=== PATIENT | female | born 1955 | race Caucasian/White ===

== ENCOUNTER → 2017-02-01 | Outpatient (CLI) | payer OTHER | END | disposition home or self-care (01) | LOC: GMAB 10:20 | PROVIDERS: ATTEND Family Medicine | DX: Z00.01 Encounter for general adult medical examination with abnormal findings (principal) ==

== ENCOUNTER → 2017-02-15 | Outpatient (CLI) | payer BC, OTHER ==
--- NOTE | 2017-02-17 10:59 | MAM ---
EXAM DESCRIPTION: 3D Screening BILATERAL : Digital Mammography. CLINICAL HISTORY: 61 years Female SCREENING . No complaints. No family history breast cancer. Hysterectomy. Taking HRT 5 or more years ago. COMPARISON: 2-D digital screening bilateral study 01/28/2016 and 10/23/2014. 2-D digital diagnostic right breast mammogram and targeted right breast ultrasound 11/13/2014. Report from prior examination also reviewed. TECHNIQUE: Bilateral CC and MLO projection full-field images, 3-D tomosynthesis digital mammographic technique. Also bilateral synthesized CC/ MLO full-field images. CAD not utilized. FINDINGS: The breast parenchymal density pattern is: Scattered areas of fibroglandular density. No skin thickening or nipple retraction bilateral solitary microcalcifications. Intramammary lymph node anterior right breast. No focal, stellate mass or density, focal asymmetry , and no suspicious microcalcifications bilaterally. Stable mammograms compared to prior studies, taking into account differences in mammographic technique IMPRESSION: BI-RADS CATEGORY: 2 - BENIGN FINDINGS. FOLLOW UP: Routine digital bilateral screening, one year interval from January 2017. Written communication explaining the IMPRESSION and follow-up, will be mailed to the patient and referring health care provider. According to the [employer], yearly mammograms are recommended starting at age 40 and continuing as long as a woman is in good health. Any breast change noted on a breast self-exam should be reported promptly to the patient's healthcare provider. Breast MRI is recommended for women with an approximately 20-25% or greater lifetime risk of breast cancer, including women with a strong family history of breast or ovarian cancer and women who have been treated for Hodgkin's disease. A negative mammographic report should not delay tissue diagnosis in patients with significant clinical history or physical findings. Extremely dense breast tissue limits the sensitivity of digital mammography. Electronically signed by: Camacho Meléndez MD 02/17/2017 10:57 AM GERM DRIER
== END ==
LOC: MAMMO 09:56
PROVIDERS: ATTEND Family Medicine
DX: Z12.31 Encounter for screening mammogram for malignant neoplasm of breast (principal)
CPT/HCPCS: 77063; G0202

== ENCOUNTER 2017-06-28 05:48 | Day surgery (SDC) | payer BC ==
[2017-06-28] MEDS ORDERED: LACTATED RINGERS 1,000 ML ONE (06:17)
[2017-06-28] MEDS ORDERED: LIDOCAINE 1% 10 ML VIAL INJ ONE (10:00)
[2017-06-28] MEDS ORDERED: MIDAZOLAM INJ 2 MG/2 ML VIAL IV ONE (10:00)
[2017-06-28] MEDS ORDERED: PROPOFOL 200 MG/20 ML VIAL IV ONE (10:00)
[2017-06-28] MEDS ORDERED: fentaNYL CITRATE INJ 50 MCG/ML AMP IV ONE (10:00)
--- NOTE | 2017-06-28 13:11 | OP ---
DATE OF PROCEDURE: 06/28/17 PREOPERATIVE DIAGNOSIS: 1. Change in bowel habits. 2. Bilateral lower quadrant pain. 3. Bloating. POSTOPERATIVE DIAGNOSIS: 1. Diverticulosis. PROCEDURE: 1. Colonoscopy plus biopsy. SURGEON: Fredy Rosa MD. COMPLICATIONS: None apparent. BLOOD LOSS: None. MEDICATIONS: Monitored anesthesia care. DESCRIPTION OF PROCEDURE: Informed consent was obtained prior to sedation. The preprocedure cardiopulmonary assessment was satisfactory. The patient was placed in the left lateral decubitus position and was sedated. A digital rectal exam was unremarkable. The tip of the Olympus colonoscope was inserted in the rectum and guided over to the cecum. The cecum was identified by locating the ileocecal valve and appendiceal orifice. The mucosa of the cecum, ascending colon, hepatic flexure, transverse colon, splenic flexure, descending colon and sigmoid colon was closely examined. Direct and retroflexed views of the rectum were obtained. The patient has diverticulosis spread throughout the ascending colon, descending colon and sigmoid, both large and small mouthed diverticula are present. Otherwise, the colonoscopy was unremarkable. Biopsies of random colon were taken with the cold biopsy forceps to rule out microscopic colitis. Of note, I also intubated the ileocecal valve once I had reached the cecum and the terminal ileum was inspected for about 30 cm. It was unremarkable endoscopically without evidence of Crohn's disease. RECOMMENDATIONS: 1. Followup biopsies. 2. Followup with Edmund Plascencia in our office in about three weeks. 3. If the biopsies are negative for microscopic colitis, I would recommend treating her for irritable bowel syndrome. We tried her on MiraLAX. If the MiraLAX is ineffective at controlling her symptoms, I would recommend fiber supplementation, antispasmodics or other measures. 4. She needs a followup colonoscopy in 5 years because of her family history of polyps in her dad and family history of colon cancer in her paternal grandfather. #[id number] cc: Dong Julien MD [facility]
[2017-06-28 14:44] VITALS: BP 158/86; TEMP 97.9; O2SAT 97
== END 2017-06-28 11:20 | disposition home or self-care (01) ==
LOC: AMB 05:48
PROVIDERS: ATTEND Internal Medicine Gastroenterology
DX: R19.4 Change in bowel habit (principal); K57.30 Diverticulosis of large intestine without perforation or abscess without bleeding; I10 Essential (primary) hypertension; E66.9 Obesity, unspecified; Z68.31 Body mass index [BMI] 31.0-31.9, adult; Z88.8 Allergy status to other drugs, medicaments and biological substances; Z80.0 Family history of malignant neoplasm of digestive organs; Z83.71 Family history of colonic polyps; Z79.899 Other long term (current) drug therapy
CPT/HCPCS: 00811; 45380; J2250; J3010; J3490; J7120

== ENCOUNTER → 2018-04-18 | Outpatient (CLI) | payer BC | LOC: GMAE 10:24 | PROVIDERS: ATTEND Family Medicine | DX: Z00.01 Encounter for general adult medical examination with abnormal findings (principal) ==

== ENCOUNTER → 2018-05-23 | Outpatient (CLI) | payer BC, MEDICARE ==
--- NOTE | 2018-05-24 12:08 | MAM ---
EXAM DESCRIPTION: 3D Screening BILATERAL : Digital Mammography. CLINICAL HISTORY: 62 years Female SCREENING . No complaints and no personal or family history of breast cancer. Childbirth. Hysterectomy 31 years ago. Hormone replacement 5 or more years ago.. Lifetime risk of developing breast cancer (Tyrer-Cuzick model)(%): 7.9. COMPARISON: Bilateral screening digital breast tomosynthesis 02/15/2017. TECHNIQUE: Bilateral CC and MLO projection full-field images, digital tomosynthesis mammographic technique. Bilateral digital 2-D full-field MLO images. CAD not available for tomosynthesis or 2-D images. FINDINGS: The breast parenchymal density pattern is: Almost entirely fatty. No skin thickening or nipple retraction. Small solitary microcalcifications bilaterally stable. No new focal, stellate mass or density, focal asymmetry , and no suspicious microcalcifications bilaterally. Stable mammograms compared to prior study. IMPRESSION: BI-RADS CATEGORY: 1 - NEGATIVE FOLLOW UP: Routine digital bilateral screening, one year interval from May 2018. Written communication explaining the findings and follow-up, will be mailed to the patient and referring health care provider. According to the [employer], yearly mammograms are recommended starting at age 40 and continuing as long as a woman is in good health. Any breast change noted on a breast self-exam should be reported promptly to the patient's healthcare provider. Breast MRI is recommended for women with an approximately 20-25% or greater lifetime risk of breast cancer, including women with a strong family history of breast or ovarian cancer and women who have been treated for Hodgkin's disease. A negative mammographic report should not delay tissue diagnosis in patients with significant clinical history or physical findings. Extremely dense breast tissue limits the sensitivity of digital mammography. Electronically signed by: Camacho Meléndez MD 05/24/2018 12:05 PM NECK SKEWER
== END ==
LOC: MAMMO 14:00
PROVIDERS: ATTEND Family Medicine
DX: Z12.31 Encounter for screening mammogram for malignant neoplasm of breast (principal)

== ENCOUNTER → 2019-07-24 | Outpatient (CLI) | payer BC, MEDICARE ==
--- NOTE | 2019-07-25 12:01 | MAM ---
EXAM DESCRIPTION: 3D Screening BILATERAL : Digital Mammography. CLINICAL HISTORY: 64 years Female ANNUAL SCREENING . No personal or family history of breast cancer. Menarche age 9. Childbirth age 24. Hysterectomy age 31. HRT 5 or more years ago. Lifetime risk of developing breast cancer (Tyrer-Cuzick model)(%): 7.9. COMPARISON: Bilateral screening digital breast tomosynthesis May 2018 and January 2017. TECHNIQUE: Bilateral CC and MLO projection full-field images, digital tomosynthesis mammographic technique. Bilateral digital 2-D full-field MLO images. CAD available for 2-D images. FINDINGS: The breast parenchymal density pattern is: Almost entirely fatty. No skin thickening or nipple retraction. Bilateral solitary microcalcifications. No new focal, stellate mass or density, focal asymmetry , and no suspicious microcalcifications . Stable mammograms compared to prior study. IMPRESSION: Benign exam. BIRAD CATEGORY: 2 BENIGN FINDINGS. RECOMMENDATIONS: FOLLOW UP: Routine digital bilateral mammographic screening, one year interval from July 2019. Written communication explaining the IMPRESSION and follow-up, will be mailed to the patient and referring health care provider. According to the [employer], yearly mammograms are recommended starting at age 40 and continuing as long as a woman is in good health. Any breast change noted on a breast self-exam should be reported promptly to the patient's healthcare provider. Breast MRI is recommended for women with an approximately 20-25% or greater lifetime risk of breast cancer, including women with a strong family history of breast or ovarian cancer and women who have been treated for Hodgkin's disease. A negative mammographic report should not delay tissue diagnosis in patients with significant clinical history or physical findings. Extremely dense breast tissue limits the sensitivity of digital mammography. Electronically signed by: Camacho Meléndez MD 07/25/2019 11:59 AM CDT
== END ==
LOC: MAMMO 13:07
PROVIDERS: ATTEND Family Medicine
DX: Z12.31 Encounter for screening mammogram for malignant neoplasm of breast (principal)

== ENCOUNTER → 2019-08-08 | Outpatient (CLI) | payer BC, MEDICARE | LOC: GMAE 11:29 | PROVIDERS: ATTEND Family Medicine | DX: Z00.00 Encounter for general adult medical examination without abnormal findings (principal) ==

== ENCOUNTER → 2019-12-09 | Outpatient (CLI) | payer BC, MEDICARE ==
--- NOTE | 2019-12-10 11:18 | RAD ---
EXAM DESCRIPTION: Knee,Left Complete CLINICAL HISTORY: 64 years Female, PAIN IN LEFT KNEE COMPARISON: None. Findings: Four views/radiographs Location: Left knee No acute fracture or dislocation. Osteopenia. Severe left knee osteoarthritis. No significant joint effusion. IMPRESSION: No evidence of acute process in the left knee. Electronically signed by: Flavio Tiwari MD 12/10/2019 11:16 AM CDT
--- NOTE | 2019-12-10 11:19 | RAD ---
EXAM DESCRIPTION: Pelvis CLINICAL HISTORY: 64 years Female, HIP PAIN LEFT COMPARISON: None. Findings: One view(s)/radiograph(s) Mild bilateral hip osteoarthritis. No acute fracture or dislocation. No focal soft tissue swelling. Osteopenia. IMPRESSION: No acute osseous abnormality in the pelvis. Electronically signed by: Flavio Tiwari MD 12/10/2019 11:17 AM CDT
== END ==
LOC: RAD 08:14
PROVIDERS: ATTEND Orthopaedic Surgery
DX: M25.552 Pain in left hip (principal); M25.562 Pain in left knee

== ENCOUNTER 2020-01-03 12:36 | Emergency (ER) | payer BC, MEDICARE ==
[2020-01-03] MEDS ORDERED: ONDANSETRON INJ 4 MG/2 ML VIAL IV ONE (12:56)
[2020-01-03] MEDS ORDERED: SODIUM CHLORIDE 0.9% (FLUSH) 10 ML SYG IV PRN (12:56)
[2020-01-03] MEDS ORDERED: SODIUM CHLORIDE 0.9% 1000ML 1,000 ML IVS ONE (12:56)
--- NOTE | 2020-01-03 12:57 | ED.PDOC ---
History of Present Illness - General Chief Complaint: GI Problem Stated Complaint: N/V/D Time Seen by Provider: 01/03/20 12:55 Source: patient - History of Present Illness Initial Comments: 64-year-old female who is sent over to the ED from Dr. Mcgraw's clinic for chief complaint of diarrhea and vomiting. Reports onset of illness 4 days ago. States she has been having episodes of watery diarrhea every day since onset. Reports 2 days ago she was having 12-15 episodes of diarrhea per day. Reports the diarrhea has continued but is seeming to slow down some. Reports she has had 6 episodes of diarrhea today. Additionally reports intermittent moderate generalized crampy abdominal pain which occurs with her episodes of diarrhea. Currently reports minimal pain. She reports intermittent episodes of nausea and vomiting of nonbloody nonbilious emesis but has had no episodes of vomiting today. Denies any fevers, chills, chest pain, cough, shortness of breath, urinary symptoms, sore throat, headache, body aches. No known recent sick contacts. Her PCP prescribed azithromycin yesterday and she has taken 2 doses. She had some labs done this morning which revealed a slightly low sodium and potassium levels but normal white count. She was referred to the ED for her low sodium and potassium levels and dehydration. Allergies/Adverse Reactions: Allergies Doxycycline Allergy (Verified 06/27/17 11:27) Home Medications: Ambulatory Orders Fluticasone Propionate (Nasal) [Flonase Allergy Relief] 1 mcg ELVA PRN 06/27/17 Lisinopril 40 mg PO DAILY 06/27/17 Polyethylene Glycol 3350 [Miralax] 17 gm PO DAILY 06/27/17 Zolpidem Tartrate [Zolpidem Tartrate ER] 6.25 mg PO BEDTIME 06/27/17 hydroCHLOROthiazide [Hydrochlorothiazide] 12.5 mg PO DAILY 06/27/17 Atrantil 275 Mg 275 mg PO DAILY 01/03/20 Cetirizine HCl [ZyrTEC] 10 mg PO PRN 01/03/20 Fluticasone Prop 0.05% Nasal [Flonase Nasal Delia] 1 spray BNAS PRN 01/03/20 Melatonin 10 mg PO BEDTIME 01/03/20 Meloxicam 7.5 mg PO BID 01/03/20 Metamucil PO PRN 10/16/20 Nitrofurantoin Monohydrate Mac [Macrobid] 100 mg PO BID 5 Days #10 capsule 01/03/20 Omeprazole Magnesium [Prilosec Otc] 20 mg PO DAILY 01/03/20 diphenhydrAMINE HCL [Benadryl] 25 mg PO PRN 01/03/20 Review of Systems - Review of Systems Review of Systems: 01/03/20 13:17 as per HPI All other Systems: Reviewed and Negative Past Medical History (General) - Patient Medical History Hx Congestive Heart Failure: No Hx Diabetes: No Hx MRSA: No Family Medical History - Family History Mother Family History: Unknown Living Status: Unknown Physical Exam - Physical Exam General Appearance: Alert, Comfortable, No apparent distress Eye Exam: bilateral normal Ears, Nose, Throat: normal ENT inspection, normal pharynx Neck: non-tender, full range of motion, supple, normal inspection Respiratory: lungs clear, normal breath sounds, no respiratory distress, no accessory muscle use Cardiovascular/Chest: normal peripheral pulses, regular rate, rhythm, no edema, no gallop, no JVD, no murmur Peripheral Pulses: radial,right: 2+, radial,left: 2+ Gastrointestinal/Abdominal: soft, abnormal bowel sounds - Hyperactive, tenderness - Mild generalized tenderness to palpation without rebound or guarding. Obturator and psoas signs are negative Back Exam: normal inspection, no CVA tenderness, no vertebral tenderness Extremity: normal range of motion, non-tender, normal inspection, no pedal edema, no calf tenderness, normal capillary refill Neurologic: human resources support specialist II-XII nml as tested, no motor/sensory deficits, alert, normal mood/affect, oriented x 3 Skin Exam: normal color, warm/dry Progress - Progress Progress: 01/03/20 13:19 Nausea/vomiting/diarrhea -Suspect viral gastroenteritis most likely, consider also colitis, UTI, constipation, acute appendicitis, acute pancreatitis, COVID-19, flu, strep, diverticulitis, other -Patient stable, vitals normal, afebrile, no acute distress -Obtain repeat blood work, urinalysis, swabs for COVID-19/flu/strep -Place peripheral IV, 1 L normal saline bolus, Zofran 4 mg IV 01/03/20 15:11 -Patient remains stable, reports feeling a little better. Denies any acute abdominal pain or tenderness on repeat exam. -Lab work reveals Na 128 (corrects to 129), K 3.1, Lipase 252. WBC 7,600 w/o left shift or bandemia. CMP with glucose 150, otherwise pretty normal appearing. Negative for flu/strep/COVID-19. UA with 10-20 WBC, 10-20 RBC, +nitrites - suspicious for UTI. -Discussed all findings with patient as well as diagnoses of acute viral gastroenteritis, mild dehydration, hyponatremia (suspect 2/2 dehydration/enteritis). Discussed the slightly elevated lipase level which I feel is secondary to the vomiting and diarrhea. Patient states she has not had vomiting and more than 2 days time now. And again she does not have any abdominal tenderness on exam denies any epigastric pain. I am highly doubtful of any emergent etiology such as acute pancreatitis, cholecystitis etc. I discussed possible hospital admission with the patient but she declines and would really like to go home. As she appears very stable and is able to tolerate p.o. fluids, I discussed her with Dr. Mcgraw who will check up on patient again on Monday and will arrange for repeat labs next week. I advised the patient to remain well-hydrated. For the UTI, we will switch her antibiotics from azithromycin to Macrobid. -Discharged home in good condition, return warnings discussed. Fredy Barton MD Billing #[id number] 01/03/20 12:56 Telemetry .ONCE Sodium Chloride 0.9% (Flush) [Saline Flush Syringe] 10 ml IV PRN PRN 01/03/20 13:26 STREP A SCREEN CULTURE Stat 01/03/20 14:14 URINE CULTURE W/COLONY COUNT Stat Laboratory Results - last 24 hr 01/03/20 01/03/20 01/03/20 13:24 13:24 13:26 WBC 7.6 RBC 4.89 Hgb 16.0 Hct 44.9 MCV 91.7 MCH 32.7 H MCHC 35.6 RDW 12.3 Plt Count 210 MPV 8.0 Absolute Neuts (auto) 5.40 Absolute Lymphs (auto) 0.90 L Absolute Monos (auto) 1.30 H Absolute Eos (auto) 0.00 Absolute Basos (auto) 0.00 Neutrophils % 71.4 Lymphocytes % 11.5 L Monocytes % 16.5 H Eosinophils % 0.2 L Basophils % 0.4 Sodium 128 L Potassium 3.1 L Chloride 93 L Carbon Dioxide 21 Anion Gap 17.1 BUN 17 Creatinine 0.87 BUN/Creatinine Ratio 19.5 Random Glucose 150 H D Serum Osmolality 261.5 L Calcium 8.7 Total Bilirubin 1.0 AST 41 ALT 40 Alkaline Phosphatase 40 L B-Natriuretic Peptide 225.0 H* Serum Total Protein 7.1 Albumin 3.9 Globulin 3.2 Albumin/Globulin Ratio 1.2 Lipase 252 H Urine Color Urine Appearance Urine pH Ur Specific [place] Urine Protein Urine Glucose (UA) Urine Ketones Urine Blood Urine Nitrite Urine Bilirubin Urine Urobilinogen Ur Leukocyte Esterase Urine RBC Urine WBC Ur Epithelial Cells Urine Bacteria Urine Mucus Group A Strep Rapid Negative 01/03/20 14:14 WBC RBC Hgb Hct MCV MCH MCHC RDW Plt Count MPV Absolute Neuts (auto) Absolute Lymphs (auto) Absolute Monos (auto) Absolute Eos (auto) Absolute Basos (auto) Neutrophils % Lymphocytes % Monocytes % Eosinophils % Basophils % Sodium Potassium Chloride Carbon Dioxide Anion Gap BUN Creatinine BUN/Creatinine Ratio Random Glucose Serum Osmolality Calcium Total Bilirubin AST ALT Alkaline Phosphatase B-Natriuretic Peptide Serum Total Protein Albumin Globulin Albumin/Globulin Ratio Lipase Urine Color Yellow Urine Appearance Cloudy Urine pH 6.0 Ur Specific [place] 1.020 Urine Protein 100 H Urine Glucose (UA) Negative Urine Ketones >=160 Urine Blood Moderate H Urine Nitrite Positive H Urine Bilirubin Small H Urine Urobilinogen 0.2 Ur Leukocyte Esterase Small H Urine RBC 10-20 H Urine WBC 10-20 H Ur Epithelial Cells 1-3 Urine Bacteria 3+ H Urine Mucus Large Group A Strep Rapid Departure - Departure Clinical Impression: Gastroenteritis, Hyponatremia UTI (urinary tract infection) Qualifiers: Urinary tract infection type: acute cystitis Hematuria presence: without hematuria Qualified Code(s): N30.00 - Acute cystitis without hematuria Time of Disposition: 15:09 Disposition: Discharge to Home or Self Care Condition: Good Departure Forms: ED Discharge - Pt. Copy, Patient Portal Self Enrollment Instructions: Viral Gastroenteritis, Adult (DC) Diet: resume usual diet Activity: increase activity as tolerated Referrals: TRISTA MCGRAW MD [Primary Care Provider] - 1-2 Weeks Prescriptions: Nitrofurantoin Monohydrate Mac [Macrobid] 100 mg PO BID 5 Days #10 capsule Home Medications: Ambulatory Orders Fluticasone Propionate (Nasal) [Flonase Allergy Relief] 1 mcg ELVA PRN 06/27/17 Lisinopril 40 mg PO DAILY 06/27/17 Polyethylene Glycol 3350 [Miralax] 17 gm PO DAILY 06/27/17 Zolpidem Tartrate [Zolpidem Tartrate ER] 6.25 mg PO BEDTIME 06/27/17 hydroCHLOROthiazide [Hydrochlorothiazide] 12.5 mg PO DAILY 06/27/17 Atrantil 275 Mg 275 mg PO DAILY 01/03/20 Cetirizine HCl [ZyrTEC] 10 mg PO PRN 01/03/20 Fluticasone Prop 0.05% Nasal [Flonase Nasal Delia] 1 spray BNAS PRN 01/03/20 Melatonin 10 mg PO BEDTIME 01/03/20 Meloxicam 7.5 mg PO BID 01/03/20 Metamucil PO PRN 01/03/20 Nitrofurantoin Monohydrate Mac [Macrobid] 100 mg PO BID 5 Days #10 capsule 01/03/20 Omeprazole Magnesium [Prilosec Otc] 20 mg PO DAILY 01/03/20 diphenhydrAMINE HCL [Benadryl] 25 mg PO PRN 01/03/20 Additional Instructions: Remain well-hydrated and gradually advance her diet and activity level as tolerated. Quit taking the azithromycin and begin taking the Macrobid as directed for UTI. You may continue to take the prescribed antiemetic as needed for nausea. Return to the ED if you develop any concerning symptoms such as worsening abdominal pain, intractable nausea and vomiting, large volume or frequent diarrhea, blood in the vomit or stool, chest pain, shortness of breath, etc. Follow-up with your PCP is recommended in the next 2 to 3 days for repeat blood work and evaluation or sooner as needed.
[2020-01-03] MEDS ORDERED: POTASSIUM CHLORIDE 20 MEQ TAB PO ONE (14:09)
[2020-01-03] MEDS ORDERED: NITROFURANTOIN MONOHYDRATE MAC 100 MG CAP PO ONE (15:07)
[2020-01-03 15:29] VITALS: BP 134/86; TEMP 97.8; O2SAT 97
== END 2020-01-03 15:29 | disposition home or self-care (01) ==
LOC: ER 12:36
DX: K52.9 Noninfective gastroenteritis and colitis, unspecified (principal); N30.00 Acute cystitis without hematuria; E87.1 Hypo-osmolality and hyponatremia; Z20.828 Contact with and (suspected) exposure to other viral communicable diseases
CPT/HCPCS: 36415; 80053; 81001; 83690; 83880; 85025; 87070; 87086; 87088; 87186; 87502; 87635; 87880; J2405; J7030

== ENCOUNTER → 2020-01-03 | Outpatient (CLI) | payer BC, MEDICARE | LOC: LAB.O 10:17 | PROVIDERS: ATTEND Family Medicine | DX: R19.7 Diarrhea, unspecified (principal) ==

== ENCOUNTER → 2020-01-04 | Outpatient (CLI) | payer BC, MEDICARE | LOC: LAB.O 09:08 | PROVIDERS: ATTEND Family Medicine | DX: R19.7 Diarrhea, unspecified (principal) ==

== ENCOUNTER → 2020-01-06 | Outpatient (CLI) | payer BC, MEDICARE | LOC: GMAE 13:48 | PROVIDERS: ATTEND Family Medicine | DX: R74.9 Abnormal serum enzyme level, unspecified (principal); A08.4 Viral intestinal infection, unspecified; N39.0 Urinary tract infection, site not specified ==

== ENCOUNTER → 2020-01-20 | Outpatient (CLI) | payer BC, MEDICARE | LOC: LAB.O 10:43 | PROVIDERS: ATTEND Orthopaedic Surgery | DX: Z01.818 Encounter for other preprocedural examination (principal) ==